=== PATIENT | male | born 1970 | race Caucasian/White ===

== ENCOUNTER 2020-05-10 14:17 | Outpatient (CLI) | payer OTHER, SELFPAY ==
--- NOTE | ~2020-05-10 | XR_ITS ---
EXAMINATION: XR femur RT min 2V INDICATION: Dog bite, possible foreign body TECHNIQUE: Two views of the left femur are obtained on four radiographs. COMPARISON: None available FINDINGS: Bone alignment is normal. There is no fracture. No radiopaque foreign body is identified. IMPRESSION: 1. No radiopaque foreign body or acute osseous abnormality. Reviewed, dictated and finalized at location A.
== END 2020-05-10 14:18 | disposition home or self-care (01) ==
PROVIDERS: PCP Family Medicine; Visit Provider Family Medicine
DX: M79.604 Pain in right leg (principal)
CPT/HCPCS: 73552

== ENCOUNTER 2020-06-18 13:59 | Outpatient (CLI) | payer OTHER, SELFPAY ==
--- NOTE | ~2020-06-18 | XR_ITS ---
EXAMINATION: XR finger 2nd LT min 2V DATE: 06/18/2020 14:36 INDICATION: Pain at the left second digit TECHNIQUE: Dorsal palmar, lateral and 2 oblique views of the left second digit were obtained COMPARISON: None FINDINGS: Alignment is normal. No fracture. Joint spaces are normal. No cortical erosions or periosteal reactio n to suggest osteomyelitis. No radiopaque foreign bodies. Soft tissues are unremarkable. IMPRESSION: 1. Negative left second digit radiographs. Reviewed, dictated and finalized at location A.
== END 2020-06-18 14:00 | disposition home or self-care (01) ==
LOC: CHSIMG 14:02
PROVIDERS: PCP Family Medicine; Visit Provider Family Medicine
DX: M79.645 Pain in left finger(s) (principal)
CPT/HCPCS: 73140

== ENCOUNTER 2024-03-11 13:52 | Outpatient (CLI) | payer SELFPAY ==
--- NOTE | ~2024-03-11 | CT_ITS ---
EXAMINATION: CT abdomen pelvis wo con DATE: 03/11/2024 14:28 INDICATION: Left flank pain and hematuria. Urinary retention. TECHNIQUE: Computed tomography (CT) of the abdomen and pelvis was performed without intravenous contr ast. The dose-length product was 1395.99 mGy-cm. Automated exposure control and iterative reconstruct ion technique were employed. COMPARISON: None. FINDINGS: There is a 4 mm left mid ureteral stone with mild hydronephrosis. There are parapelvic cyst s bilaterally. There is a 4 mm nonobstructing left renal stone. Bladder is unremarkable. Lung bases unremarkable. Heart size normal. No significant pleural or pericardial effusion. Gallbladd er is present. Mild retroperitoneal lymphadenopathy, likely reactive. Nonobstructive bowel gas patter n. No significant vascular abnormality. The liver, spleen, pancreas, adrenal glands are unremarkable. No free air or free fluid. Prostate gla nd is enlarged. IMPRESSION: 1. Left mid ureteral stone measuring 4 mm with mild hydronephrosis. 2: Nonobstructing left nephrolithiasis. 3: Retroperitoneal lymphadenopathy, likely reactive. Reviewed, dictated and finalized at location B.
== END 2024-03-11 13:53 | disposition home or self-care (01) ==
LOC: CHSIMG 13:56
PROVIDERS: PCP Nurse Practitioner Family; Visit Provider Nurse Practitioner Family
DX: M54.50 Low back pain, unspecified (principal); R31.9 Hematuria, unspecified; R33.9 Retention of urine, unspecified; N20.1 Calculus of ureter; N20.0 Calculus of kidney; R59.0 Localized enlarged lymph nodes
CPT/HCPCS: 74176

== ENCOUNTER 2025-10-13 15:00 | Outpatient (CLI) | payer BC, SELFPAY ==
--- NOTE | ~2025-10-13 | US_ITS ---
EXAMINATION: US soft tissue head and neck DATE: 10/13/2025 15:19 INDICATION: Left neck mass. TECHNIQUE: Multiple grayscale and Doppler ultrasound images of the head and neck were obtained. COMPARISON: None FINDINGS: There is a 4.1 x 3.1 cm mass in the left neck in the submandibular region. There is a 2.8 x 2.1 x 1.3 cm lymph node in left neck. IMPRESSION: 1. Left neck mass, which may be a pathologically enlarged lymph node or benign or malignant submandibular gland mass. Neck CT with contrast is recommended. 2. Mildly enlarged left neck lymph node. Reviewed, dictated and finalized at location E. [employer]
== END 2025-10-13 15:01 | disposition home or self-care (01) ==
PROVIDERS: PCP Nurse Practitioner Family; Visit Provider Family Medicine
DX: R22.1 Localized swelling, mass and lump, neck (principal); R59.0 Localized enlarged lymph nodes
CPT/HCPCS: 76536